=== PATIENT | male | born 1985 | race Caucasian/White ===

== ENCOUNTER 2017-08-27 20:46 | Emergency (ER) | payer BC ==
[~2017-08-27] VITALS: Ht 182.9 cm; Wt 95.3 kg
[2017-08-27 20:46] VITALS: BP 134/81
[~2017-08-27 20:46] MED LIST: HYDR-79 PO
[2017-08-27] MEDS ORDERED: diphenhydrAMINE HCL 25 MG CAPSULE PO ONE (21:10)
[2017-08-27] MEDS ORDERED: HYDR25TA PO (21:40)
[2017-08-27] MEDS ORDERED: PRED-220 PO (21:40)
[2017-08-27] MEDS ORDERED: TRIA15CR50 TP (21:40)
--- NOTE | 2017-08-27 21:40 | PHYS DOC ---
Past History Past Medical History: Hypertension, Migraines Past Surgical History: Other Alcohol Use: Occasionally Drug Use: None Adult General Chief Complaint Chief Complaint: SKIN RASH/ABSCESS HPI HPI Patient is a 32 year old M who presents with bumpy red rash associated with itching. He states that he was at a [place] 2 days ago and his symptoms have been gradually worsening since that time. His rash initially was on bilateral upper extremities and has progressed to include his face surrounding his eyes. He does note a tickle in the back of his throat. He has had similar symptoms in his childhood. Review of Systems Review of Systems Constitutional: Denies fever or chills [] Eyes: Denies change in visual acuity, redness, or eye pain [] HENT: Denies nasal congestion or sore throat [] Respiratory: Denies cough or shortness of breath [] Cardiovascular: No additional information not addressed in HPI [] GI: Denies abdominal pain, nausea, vomiting, bloody stools or diarrhea [] : Denies dysuria or hematuria [] Musculoskeletal: Denies back pain or joint pain [] Integument: Negative except history of present illness Neurologic: Denies headache, focal weakness or sensory changes [] Endocrine: Denies polyuria or polydipsia [] Family History Family History Noncontributory Current Medications Current Medications Current Medications Medications (Trade) Dose Ordered Sig/Liliane Start Time Stop Time Status Last Admin Dose Admin Diphenhydramine HCl (Benadryl) 50 mg 1X ONCE 08/27/17 21:10 08/27/17 21:11 DC 08/27/17 21:09 50 MG Allergies Allergies Allergies Coded Allergies Type Severity Reaction Last Updated Verified No Known Drug Allergies 12/31/16 No Physical Exam Physical Exam Constitutional: Well developed, well nourished, no acute distress, non-toxic appearance. [] HENT: Normocephalic, atraumatic, Eyes: PERRLA, EOMI, conjunctiva normal, no discharge. [] Cardiovascular:Heart rate regular rhythm, no murmur [] Lungs & Thorax: Bilateral breath sounds clear to auscultation [] Abdomen: Bowel sounds normal, soft, no tenderness, no masses, no pulsatile masses. [] Skin: Warm, dry, no erythema, papular rash noted over the forehead and cheeks bilaterally as well as mildly on bilateral upper extremities. Rash was difficult to see due having dark skin. Extremities: No tenderness, no cyanosis, no clubbing, ROM intact, no edema. [] Neurologic: Alert and oriented X 3, normal motor function, normal sensory function, no focal deficits noted. [] Psychologic: Affect normal, judgement normal, mood normal. [] Current Patient Data Vital Signs Vital signs normal. please refer to nursing documentation for specifics EKG EKG [] Radiology/Procedures Radiology/Procedures [] Course & Med Decision Making Course & Med Decision Making Pertinent Labs and Imaging studies reviewed. (See chart for details) Dragon Disclaimer Dragon Disclaimer This chart was dictated in whole or in part using Voice Recognition software in a busy, high-work load, and often noisy Emergency Department environment. It may contain unintended and wholly unrecognized errors or omissions. Departure Departure: Impression: Primary Impression: Contact dermatitis Disposition: HOME, SELF-CARE Referrals: CM LIMA (PCP) Patient Instructions: Contact Dermatitis Additional Instructions: Almas was seen in the emergency department for rash. No emergency medical condition was found on history or physical exam. His symptoms are most consistent with contact or allergic dermatitis. He was given a prescription for topical and oral steroids. He is also given a prescription for hydroxyzine for itching. He is advised started oral steroid only if his symptoms worsen. He is advised follow-up his primary care doctor as needed for further management Scripts Hydroxyzine Hcl (HYDROXYZINE HCL) 25 Mg Tablet 1 TAB PO TID Y for ITCHING for 7 Days, #21 TAB Prov: ANUJ SORIA MD 08/27/17 Prednisone (PREDNISONE) 10 Mg Tablet 10 MG PO DAILY for 5 Days, #5 TAB Prov: ANUJ SORIA MD 08/27/17 Triamcinolone Acetonide (TRIAMCINOLONE ACETONIDE) 15 Gm Cream..g. 1 LUIS MANUEL TP BID, #30 GM Prov: ANUJ SORIA MD 08/27/17 Problem Qualifiers Primary Impression: Contact dermatitis Contact dermatitis type: unspecified Contact dermatitis trigger: unspecified trigger Qualified Codes: L25.9 - Unspecified contact dermatitis, unspecified cause ANUJ SORIA MD Aug 27, 2017 21:40
== END 2017-08-27 21:52 | disposition home or self-care (01) ==
LOC: ER 20:46
DX: L25.9 Unspecified contact dermatitis, unspecified cause (principal); I10 Essential (primary) hypertension; G43.909 Migraine, unspecified, not intractable, without status migrainosus
CPT/HCPCS: 99283; Q0163

== ENCOUNTER → 2017-10-22 | Outpatient (CLI) | payer BC ==
[~2017-10-22] MED LIST changes: +HYDR25TA PO; +PRED-220 PO; +TRIA15CR50 TP
--- NOTE | 2017-10-22 09:26 | RAD ---
Indication: Right upper quadrant pain. The pancreas is unremarkable. The IVC is unremarkable. The liver is normal in size. No focal liver mass is seen. The gallbladder is without stones or sludge. No wall thickening or biliary ductal dilatation is seen. The right kidney is unremarkable. There is no ascites. Impression: Unremarkable right upper quadrant ultrasound.
== END | disposition home or self-care (01) ==
LOC: US 08:43
PROVIDERS: ATTEND Physician Assistant Medical
DX: R10.11 Right upper quadrant pain (principal)
CPT/HCPCS: 76705